=== PATIENT | female | born 2005 | race Caucasian/White ===

== ENCOUNTER 2023-10-13 07:07 | Inpatient (IN) | payer OTHER ==
[2023-10-13] MEDS ORDERED: Sodium Chloride 0.9% 20 ML SDV IV PRN (07:53)
[2023-10-13] MEDS ORDERED: Sodium Chloride 0.9% 2.5 ML Syringe FLUSH PRN (07:53)
[2023-10-13] MEDS ORDERED: ceFAZolin 2 GM in Sodium Chloride 0.9% 50 ML IV ONE (07:53)
[2023-10-13] MEDS ORDERED: Sodium Chloride 0.9% 10 ML Syringe FLUSH PRN (07:53)
[2023-10-13] MEDS ORDERED: Lactated Ringers 1,000 ML IV SCH ×2 (08:00→10:45)
[2023-10-13] MEDS ORDERED: Oxytocin/0.9 % Sodium Chloride 30 UNIT/500 ML BAG IV SCH ×2 (08:00→10:45)
[2023-10-13] MEDS ORDERED: ceFAZolin 1 GM Vial ONE (08:14)
[2023-10-13] MEDS ORDERED: ePHEDrine 50 MG/ML SDV ONE (08:14)
[2023-10-13] MEDS ORDERED: fentaNYL 100 MCG/2 ML SDV ONE (08:14)
[2023-10-13] MEDS ORDERED: Ondansetron 4 MG/2 ML SDV ONE (08:14)
[2023-10-13] MEDS ORDERED: Ropivacaine 0.5% 5 MG/ML 30 ML SDV ONE (08:14)
[2023-10-13] MEDS ORDERED: Bupivacaine 0.25% 30 ML SDV ONE (08:14)
[2023-10-13] MEDS ORDERED: Ketorolac 30 MG/ML SDV ONE (08:14)
[2023-10-13] MEDS ORDERED: Oxytocin 10 Units/1 ML SDV ONE (08:14)
[2023-10-13] MEDS ORDERED: Morphine PF 10 MG/10 ML SDV ONE (08:15)
[2023-10-13] MEDS ORDERED: EPINEPHrine 1 MG/1 ML Amp ONE (08:15)
[2023-10-13 08:19] LABS: BASOPHILS ABSOLUTE AUTO 0.04 K/uL (0.00-0.20); BASOPHILS PERCENT AUTO 0.3 % (0.0-1.0); EOSINOPHILS ABSOLUTE AUTO 0.05 K/uL (0.00-0.45); EOSINOPHILS PERCENT AUTO 0.4 % (0.0-6.0); HEMATOCRIT 33.6 % (37.0-47.0); HEMOGLOBIN 10.9 g/dL (12.0-16.0); IMMATURE GRAN ABSOLUTE AUTO 0.08 K/uL (0.00-0.05); IMMATURE GRAN PERCENT AUTO 0.7 % (0.0-0.4); LYMPHOCYTES ABSOLUTE AUTO 2.19 K/uL (1.00-4.80); LYMPHOCYTES PERCENT AUTO 18.9 % (24.0-44.0); MEAN CORPUSCULAR HEMOGLOBIN 29.5 pg (28.0-32.0); MEAN CORPUSCULAR HGB CONC 32.4 g/dL (32.0-36.0); MEAN CORPUSCULAR VOLUME 91.1 fL (83.0-99.0); MEAN PLATELET VOLUME 11.3 fL (9.4-12.3); MONOCYTES ABSOLUTE AUTO 0.58 K/uL (0.00-0.80); NEUTROPHILS ABSOLUTE AUTO 8.63 K/uL (1.80-7.70); NEUTROPHILS PERCENT AUTO 74.7 % (41.0-71.0); PLATELET COUNT,PLT 157 K/uL (150-400); RED BLOOD CELL COUNT 3.69 M/uL (4.10-5.30); WHITE BLOOD CELL COUNT,WBC 11.57 K/uL (3.9-11.3)
[2023-10-13] MEDS ORDERED: ceFAZolin 2 GM Vial ONE (08:56)
[2023-10-13] MEDS ORDERED: Phenylephrine 1% 10 MG/ML SDV ONE (09:24)
[2023-10-13] MEDS ORDERED: droPERidol 5 MG/2 ML SDV IVPUSH PRN (10:08)
[2023-10-13] MEDS ORDERED: fentaNYL 100 MCG/2 ML SDV IVPUSH PRN (10:08)
[2023-10-13] MEDS ORDERED: Naloxone 0.4 MG/ML SDV IVPUSH PRN (10:08)
[2023-10-13] MEDS ORDERED: Acetaminophen/oxyCODONE 325-5 MG Tab PO PRN (10:08)
[2023-10-13] MEDS ORDERED: fentaNYL 50 MCG/ML SDV IVPUSH PRN (10:08)
[2023-10-13] MEDS ORDERED: Albuterol 0.083% 2.5 MG/3 ML Neb Soln NEB PRN (10:08)
[2023-10-13] MEDS ORDERED: ePHEDrine 50 MG/ML SDV IVPUSH PRN (10:08)
[2023-10-13] MEDS ORDERED: HYDROmorphone 1 MG/ML Syringe IVPUSH PRN (10:08)
[2023-10-13] MEDS ORDERED: diphenhydrAMINE 50 MG/ML SDV IVPUSH PRN ×2 (10:08→10:41)
[2023-10-13] MEDS ORDERED: Morphine 2 MG/ML SYRINGE IVPUSH PRN (10:08)
[2023-10-13] MEDS ORDERED: Metoclopramide 10 MG/2 ML SDV IVPUSH PRN (10:08)
[2023-10-13] MEDS ORDERED: Ondansetron 4 MG/2 ML SDV IVPUSH PRN ×3 (10:08→10:41)
[2023-10-13] MEDS ORDERED: oxyCODONE 5 MG Tab PO PRN (10:41)
[2023-10-13] MEDS ORDERED: Bisacodyl 10 MG Supp RECTAL PRN (10:41)
[2023-10-13] MEDS ORDERED: Lanolin 100% Cream 7 GM Tube TOP PRN (10:41)
[2023-10-13] MEDS ORDERED: Acetaminophen 500 MG Tab PO PRN (10:41)
[2023-10-13] MEDS ORDERED: Oxytocin 10 Units/1 ML SDV IM PRN (10:41)
[2023-10-13] MEDS ORDERED: Ibuprofen 800 MG Tab PO PRN (10:41)
[2023-10-13] MEDS ORDERED: Misoprostol 200 MCG Tab RECTAL PRN (10:41)
[2023-10-13] MEDS ORDERED: Methylergonovine 0.2 MG/1 ML Amp IM PRN (10:41)
[2023-10-13 11:03] LABS: PH,UMBILICAL ARTERIAL 7.195 (7.18-7.38); PH,UMBILICAL VENOUS 7.263 (7.25-7.45)
[2023-10-13] MEDS: Acetaminophen 1,000 MG in Premix Bag 1 BAG IV SCH ×3 (11:20→23:47)
[2023-10-13] MEDS: Ketorolac 30 MG/ML SDV IVPUSH SCH ×2 (14:19→20:19)
[2023-10-13] MEDS: Docusate Sodium 100 MG Cap PO SCH (20:19)
[2023-10-14] MEDS: Ketorolac 30 MG/ML SDV IVPUSH SCH ×3 (02:17→17:09)
[2023-10-14] MEDS: Acetaminophen 1,000 MG in Premix Bag 1 BAG IV SCH (04:46)
[2023-10-14 06:23] LABS: HEMATOCRIT 30.4 % (37.0-47.0); HEMOGLOBIN 9.7 g/dL (12.0-16.0)
[2023-10-14] MEDS: Prenatal Multivitamin with Calcium/Folic Acid/Iron Tab PO SCH (08:17)
[2023-10-14] MEDS: Docusate Sodium 100 MG Cap PO SCH ×2 (08:17→20:45)
[2023-10-15] MEDS: Prenatal Multivitamin with Calcium/Folic Acid/Iron Tab PO SCH (08:48)
[2023-10-15] MEDS: Docusate Sodium 100 MG Cap PO SCH (09:07)
== END 2023-10-15 12:50 | disposition home or self-care (01) | DRG 788 ==
LOC: MW.OB 07:07
PROVIDERS: ADMIT Obstetrics & Gynecology; ATTEND Obstetrics & Gynecology
PROC: 10D00Z1 Extraction of Products of Conception, Low, Open Approach (ICD-10-PCS; principal; 2023-10-13 09:00)
DX: O99.02 Anemia complicating childbirth (principal); O32.1XX0 Maternal care for breech presentation, not applicable or unspecified; Z37.0 Single live birth; Z3A.39 39 weeks gestation of pregnancy
CPT/HCPCS: 36415; 76815; 76815-26; 82803; 85014; 85018; 85025; 86592; 86850; 86900; 86901; A9270-GY; J0131; J0171; J0665; J0690; J1100; J1885; J2274; J2371; J2405; J2590; J2795; J3010; J3490; J7120